=== PATIENT | female | born 1970 | race Caucasian/White ===

== ENCOUNTER 2019-02-27 10:37 | Outpatient (CLI) | payer SELFPAY | END 2019-02-27 10:38 | disposition critical access hospital (66) | LOC: EMS 10:37 | PROVIDERS: ATTEND Surgery | DX: M25.552 Pain in left hip (principal); R42 Dizziness and giddiness; W18.39XA Other fall on same level, initial encounter; Y92.89 Other specified places as the place of occurrence of the external cause | CPT/HCPCS: A0425; A0429 ==

== ENCOUNTER 2019-02-27 10:47 | Observation (INO) | payer SELFPAY ==
[2019-02-27] MEDS ORDERED: HYDROmorphone 1 MG/ML CARPUJECT IVP STA ×5 (12:09→17:43)
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
[2019-02-27 12:55] LABS: BASOPHILS # (AUTO) 0.1 10^3/uL (0.0-0.1); BASOPHILS % (AUTO) 1.2 %; EOSINOPHILS # (AUTO) 0.1 10^3/uL (0.0-0.7); EOSINOPHILS % (AUTO) 1.3 %; HGB - HEMOGLOBIN 13.9 g/dL (12.0-16.0); LYMPHOCYTES # (AUTO) 2.8 10^3/uL (1.5-3.5); LYMPHOCYTES % (AUTO) 26.8 %; MEAN CORPUSCULAR HEMOGLOBIN 30.8 pg (27.0-31.0); MEAN CORPUSCULAR HGB CONC 33.8 g/dL (32.0-36.0); MEAN PLATELET VOLUME 7.1 fL (7.9-10.8); MONOCYTES # (AUTO) 0.5 10^3/uL (0.0-1.0); MONOCYTES % (AUTO) 5.2 %; NEUTROPHILS % (AUTO) 65.5 %; PLT - PLATELET COUNT 238 10^3/uL (130-450); RED BLOOD COUNT 4.53 10^6/uL (4.20-5.40); RED CELL DISTRIBUTION WIDTH 14.3 % (12.0-15.0); WHITE BLOOD COUNT 10.6 x10^3/uL (4.8-10.8)
[2019-02-27] MEDS ORDERED: ONDANSETRON 4 MG/2 ML VIAL IVP STA (12:55)
[2019-02-27 13:10] LABS: ALBUMIN/GLOBULIN RATIO 1.2 (1.0-2.2); BILIRUBIN,TOTAL 0.6 mg/dL (0.2-1.0); CALCIUM 9.2 mg/dL (8.5-10.3); CREATININE 0.5 mg/dL (0.4-1.0); TOTAL PROTEIN 7.4 g/dL (6.7-8.2)
[2019-02-27] MEDS ORDERED: KETAMINE 500 MG/10 ML VIAL IVP STA (13:29)
--- NOTE | 2019-02-27 15:39 | XRAY Report ---
Reason: hip pain Procedure Date: 02/27/2019 Accession Number: [id number] / [id number] Procedure: XR - Femur 2V LT CPT Code: FULL RESULT: EXAM: LEFT FEMUR RADIOGRAPHY. EXAM DATE: 02/27/2019 02:34 PM. CLINICAL HISTORY: Hip pain. COMPARISON: FEMUR 2V LT 02/27/2019 2:21 PM, HIP W/PELVIS 2-3V LT 02/27/2019 2:21 PM. TECHNIQUE: 2 views. FINDINGS: Bones: Normal. No fracture or bone lesion. Joints: The visualized hip and knee joints are normal. No effusions. Soft Tissues: Normal. No soft tissue swelling. IMPRESSION: Normal femur radiography. RADIA
--- NOTE | 2019-02-27 15:41 | XRAY Report ---
Reason: hip pain Procedure Date: 02/27/2019 Accession Number: [id number] / [id number] Procedure: XR - Hip w/Pelvis 2-3V LT CPT Code: FULL RESULT: EXAM: LEFT HIP RADIOGRAPHY EXAM DATE: 02/27/2019 02:34 PM. CLINICAL HISTORY: Hip pain. COMPARISON: HIP W/PELVIS 2-3V LT 02/27/2019 2:21 PM FEMUR 2V LT 02/27/2019 2:21 PM. TECHNIQUE: 2 views. FINDINGS: Bones: Normal. No fractures or bone lesion. Joints: Normal. No dislocation. The hip joint space is preserved. Soft Tissues: Normal. No soft tissue swelling. T-shaped IUD is superimposed in the central pelvis. Degenerative disk and facet changes noted in the lower lumbar spine. IMPRESSION: Normal hip radiography. RADIA
--- NOTE | 2019-02-27 16:48 | CT Report ---
Reason: Persistent hip pain p fall Procedure Date: 02/27/2019 Accession Number: [id number] / [id number] Procedure: CT - LOWER EXTREMITY WO - LT CPT Code: FULL RESULT: EXAM: LEFT HIP CT WITHOUT CONTRAST EXAM DATE: 02/27/2019 04:25 PM. CLINICAL HISTORY: Persistent hip pain after fall. COMPARISON: None. TECHNIQUE: Thin-section axial images were acquired of the hip without contrast. Post-processing: Coronal and sagittal reformats. Other: None. In accordance with CT protocol optimization, one or more of the following dose reduction techniques were utilized for this exam: automated exposure control, adjustment of mA and/or KV based on patient size, or use of iterative reconstructive technique. FINDINGS: Bones: No fracture or bone lesion. Joints: The visualized hip joint space is somewhat narrow primarily posteriorly. No calcified loose bodies. No large effusions. The other visualized joint spaces are normal. Musculature: Normal. No fatty atrophy. Other: Bilateral L4 pars defect with 7.2 mm anterolisthesis and advanced osteoarthritic change and disk annulus calcification at this level. IMPRESSION: 1. No acute fractures. 2. Left hip joint space is narrow. 3. Bilateral L4 pars defects with 7.2 mm of anterolisthesis, advanced osteoarthritic change and disk annulus calcification at this level. RADIA
[2019-02-27] MEDS ORDERED: ACETAMINOPHEN 325 MG TABLET PO PRN (18:10)
[2019-02-27] MEDS: SODIUM CHLORIDE FLUSH 0.9% 10 ML SYRINGE IVP PRN (19:19)
[2019-02-27] MEDS: SODIUM CHLORIDE 0.9% 1,000 ML IV SCH (19:19)
[2019-02-27] MEDS: HYDROmorphone 0.5 MG/0.5 ML SYRINGE IVP PRN ×3 (19:32→23:53)
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
[2019-02-27 20:01] LABS: MUDS CUTOFF CONCENTRATIONS CUTOFF CONC BELOW:
--- NOTE | 2019-02-27 20:17 | CONSULTATION NOTE ---
Referring Provider Name of Referring Provider:: Robin Miles MD Consult Date: 02/27/19 Chief Complaint - Chief Complaint Chief Complaint: Asked to evaluate for left hip pain History of Present Illness - History of Present Illness HPI Comment/Other: Sonali is a 49-year-old female in her usual state of health until today 02/27/2019 when she was visiting from out of town. [place] and said she was "running around" and possibly dehydrated and reportedly passed out landing directly on her left hip. She said she had difficulty walking and pain. She points the lateral aspect of her left hip and posterior laterally in the gluteal region as the location of the majority of her symptoms. She said that she has a bit of thigh pain pointing to the quadriceps anteriorly denies significant groin pain denies other significant traumatic complaints. She denies a history of passing out. She reportedly has type 2 diabetes which is controlled with diet. Patient was seen in the emergency department reportedly had negative x-rays and a negative CT scan and orthopedic consultation was sought. Patient was to be admitted to the hospitalist service for observation and pain control. Of significant note patient is visiting from out of town. She lives in [place]. She is visiting her daughter who is in the [place]. Patient was previously planning to go back home to [place] to get this weekend. She has a Elia moura. History - Past Medical History Cardiovascular: reports: None Respiratory: reports: None Neuro: reports: None Endocrine/Autoimmune: reports: Type 2 diabetes GI: reports: None, Other (Obesity) MENTAL MEASUREMENTS TEACHER: reports: None : reports: None HEENT: reports: None Psych: reports: None Musculoskeletal: reports: None Derm: reports: None MRSA Hx?: No - Past Surgical History /MENTAL MEASUREMENTS TEACHER: reports: section - Family & Social History Living arrangement: At home Living Situation: With spouse/s.o. (See medical record for further details.) - POLST Patient has POLST: No Meds/Allgy - Home Medications Home Medications: Ambulatory Orders Medication Instructions Recorded Confirmed No Known Home Medications 02/27/19 02/27/19 - Allergies Allergies/Adverse Reactions: Allergies Allergy/AdvReac Type Severity Reaction Status Date / Time ibuprofen [From Motrin] Allergy Rash Verified 02/27/19 10:59 Penicillins Allergy Hives Verified 02/27/19 10:59 Exam - Vital Signs Vital Signs: Vital Signs x48h Temp Pulse Pulse Resp BP BP Pulse Ox 02/27/19 19:00 36.6 C 109 H 22 146/75 H 97 02/27/19 18:07 37.3 C 107 H 18 124/72 96 02/27/19 16:34 108 H 16 118/80 96 02/27/19 15:05 103 H 18 157/91 H 97 02/27/19 13:43 109 H 16 195/109 H 97 - Physical Exam Comments/Other: Patient is a morbidly obese 49-year-old female no acute distress. She is awake and alert and cooperative with the exam. Patient is observed to move somewhat comfortably in her bed and denies pain at rest. Patient's left lower extremity shows skin is intact no abrasions or ecchymosis appreciated on her thigh or gluteal region. Patient is able to initiate flexion-extension of ankle knee and hip. She has palpable dorsalis pedis. She is light touch sensation distally. Calf and thigh generally soft and nontender. Patient is able to straight leg raise in the supine position and reports mild lateral sided hip pain with that. She denies any groin pain with that maneuver. She denies groin pain with logrolling or passive hip flexion internal and external rotation though does report some trochanteric and gluteal region pain with that. She has tenderness to palpation laterally over the trochanter and just posterior to that. Knee unremarkable foot and ankle unremarkable for acute findings. There is no deformity of the left lower extremity regarding length alignment rotation. Conclusion/Plan - Diagnosis Diagnosis: Left gluteal/ hip contusion, Possible occult fracture - Plan Plan: Sonali is a 49-year-old female with a left hip contusion possible occult fracture. Patient had x-rays and CT scan. These were read as negative by the radiologist. No obvious fracture is noted though a nondisplaced basicervical fracture of the left femur is possible and explained/discussed with the patient. Initially per discussion with the emergency medicine physician, the patient was to have an MRI. However, unfortunately the patient has a pacemaker and MRI will not be possible. Discussed this with the patient. We talked about her exam history and the studies to date. Her exam (and younger age) is somewhat atypical for a hip fracture. That said, she is significantly painful for this to be a serious consideration. We talked about treatment options both operative and nonoperative and the potential short and long-term problems with and without surgery. We talked about the potential for a nondisplaced hip fracture displacing. The implications of this are discussed. We also highlighted the potential risks/benefits/alternatives associated with surgery. We discussed the typical situation where an MRI is possible and we are able to act on more specific knowledge of the presence or absence of a fracture. It does not appear that this will be possible in her case. After outlining the options and the potential r/b/a with and without surgery patient wishes to proceed with the following plan: Patient wishes to proceed with nonoperative treatment. This will include protected weightbearing with foot flat weightbearing and assistive device and assistance for any transfers or ambulation. The potential for this treatment approach failing and the potential for her having a nondisplaced fracture displaced and the potential need for surgery in the future is discussed. I would recommend formal physical therapy and occupational therapy to help navigate this. I would recommend continued analgesia as appropriate. I would recommend appropriate DVT prophylaxis both mechanical and chemical. I recommend decubitus precautions and incentive spirometer q. one hour when awake. We discussed with the patient that with or without surgery I would not advise her to travel back to [place] in the near future. The rationale for this is reviewed. My suspicion is that she will benefit from a stay in a rehabilitation facility given the significant precautions that must be taken until she has healing of her soft tissues and/or her underlying bone. This was discussed with the hospitalist taking care of her. We will also discuss with the orthopedic team for any further recommendations. We will continue to follow this patient but please do not hesitate to contact orthopedic service for any further information or answer additional questions. - Lab Results Fish Bones: 02/27/19 12:47 02/27/19 12:47
[2019-02-27 20:21] LABS: COCAINE SCREEN URINE NEGATIVE (NEGATIVE)
[2019-02-27 20:22] LABS: AMPHETAMINE SCREEN,URINE POSITIVE (NEGATIVE); BENZODIAZEPINES SCREEN, URINE NEGATIVE (NEGATIVE); METHADONE SCREEN, URINE NEGATIVE (NEGATIVE); METHAMPHETAMINES SCREEN, URINE POSITIVE (NEGATIVE); OPIATE SCREEN, URINE POSITIVE (NEGATIVE); TRICYCLIC ANTIDEPRESSANT,URINE NEGATIVE (NEGATIVE)
[2019-02-27 20:23] LABS: OXYCODONE SCREEN, URINE NEGATIVE (NEGATIVE); PROPOXYPHENE SCREEN, URINE NEGATIVE (NEGATIVE)
[2019-02-27] MEDS: FAMOTIDINE 20 MG TABLET PO SCH (21:29)
[2019-02-27] MEDS: NYSTATIN POWDER 15 GM TOP SCH (21:29)
[2019-02-28] MEDS: SODIUM CHLORIDE FLUSH 0.9% 10 ML SYRINGE IVP SCH ×3 (01:00→16:31)
[2019-02-28] MEDS: TEMAZEPAM 15 MG CAPSULE PO PRN ×2 (01:08→22:02)
[2019-02-28] MEDS: ONDANSETRON ODT 4 MG TABLET TL PRN ×3 (03:06→21:20)
[2019-02-28] MEDS: HYDROmorphone 0.5 MG/0.5 ML SYRINGE IVP PRN ×8 (03:06→18:32)
[2019-02-28] MEDS: SODIUM CHLORIDE 0.9% 1,000 ML IV SCH ×2 (04:58→15:01)
[2019-02-28 06:10] LABS: BASOPHILS # (AUTO) 0.1 10^3/uL (0.0-0.1); BASOPHILS % (AUTO) 1.3 %; EOSINOPHILS # (AUTO) 0.3 10^3/uL (0.0-0.7); EOSINOPHILS % (AUTO) 3.1 %; HGB - HEMOGLOBIN 12.4 g/dL (12.0-16.0); LYMPHOCYTES # (AUTO) 2.6 10^3/uL (1.5-3.5); LYMPHOCYTES % (AUTO) 29.6 %; MEAN CORPUSCULAR HEMOGLOBIN 32.1 pg (27.0-31.0); MEAN CORPUSCULAR HGB CONC 34.6 g/dL (32.0-36.0); MEAN CORPUSCULAR VOLUME 92.7 fL (81.0-99.0); MEAN PLATELET VOLUME 6.9 fL (7.9-10.8); MONOCYTES # (AUTO) 0.6 10^3/uL (0.0-1.0); MONOCYTES % (AUTO) 6.7 %; NEUTROPHILS # (AUTO) 5.2 10^3/uL (1.5-6.6); NEUTROPHILS % (AUTO) 59.3 %; PLT - PLATELET COUNT 195 10^3/uL (130-450); RED BLOOD COUNT 3.88 10^6/uL (4.20-5.40); RED CELL DISTRIBUTION WIDTH 14.2 % (12.0-15.0); WHITE BLOOD COUNT 8.7 x10^3/uL (4.8-10.8)
[2019-02-28 06:17] LABS: CALCIUM 8.8 mg/dL (8.5-10.3); CREATININE 0.6 mg/dL (0.4-1.0)
[2019-02-28 07:48] LABS: HB2 TOTAL 12.8 g/dL; HEMOGLOBIN A1C 1.02 g/dL; HEMOGLOBIN A1C % 9.4 % (4.6-6.2)
[2019-02-28] MEDS: FAMOTIDINE 20 MG TABLET PO SCH ×2 (08:03→21:11)
[2019-02-28] MEDS: NYSTATIN POWDER 15 GM TOP SCH ×2 (08:11→21:11)
[2019-02-28] MEDS: POLYETHYLENE GLYCOL 3350 17 GM PACKET PO SCH (08:11)
--- NOTE | 2019-02-28 15:16 | PROVIDER PROGRESS NOTE ---
Subjective - Prog Note Date Prog Note Date: 02/28/19 Prog Note Time: 15:12 - Subjective Pt reports feeling: Improved Subjective: Komal complains of ongoing left hip pain, that is a slight bit better since arriving in the ED. She explained where her pain was, and became immediately tearful with her own palpation. She was informed of her drug screen results, and exclaimed, "I am blocking my sister from my phone, and kicking her out"! She states that her sister must have slipped some meth into her diet coke yesterday. She also questioned if you can get meth in your system by being in the same room with a meth smoker. She states that she has not been able to bear weight on her left leg at all today, and moving has been very painful despite the IV narcotics. 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 Current Medications - Current Medications Current Medications: Active Medications: Acetaminophen (Tylenol) 650 mg PO Q4HR PRN Aspirin (St Daron Aspirin) 81 mg PO DAILY RENETTA Atorvastatin Calcium (Lipitor) 40 mg PO QPM RENETTA Famotidine (Pepcid) 20 mg PO BID RENETTA Hydromorphone HCl (Dilaudid Inj Syringe) 0.5 mg IVP Q2H PRN Insulin Aspart (Novolog) 1 - 5 unit SUBQ 0800,1200,1700,2100 RENETTA; Protocol Insulin Glargine (Lantus Solostar) 10 unit SUBQ QPM RENETTA Lisinopril (Zestril) 5 mg PO DAILY RENETTA Metoprolol Succinate (Toprol Xl) 25 mg PO BIDWM RENETTA Nystatin (Nystop) 1 applic TOP BID RENETTA Ondansetron HCl (Zofran Odt) 4 mg TL Q6HR PRN Polyethylene Glycol (Miralax) 17 gm PO DAILY RENETTA Spironolactone (Aldactone) 25 mg PO DAILY RENETTA Temazepam (Restoril) 15 mg PO QPM PRN HOME meds: No Known Home Medications 02/27/19 Objective - Vital Signs/Intake & Output Reviewed Vital Signs: Yes Vital Signs: Vital Signs x48h Temp Pulse Pulse Pulse Pulse Resp BP 02/28/19 14:46 02/28/19 13:00 36.8 C 96 18 147/94 H 02/28/19 10:00 103 H 101 H 02/28/19 08:31 37.2 C 104 H 19 02/28/19 07:58 37.2 C 104 H 19 152/91 H BP BP Pulse Ox 02/28/19 14:46 95 02/28/19 13:00 94 02/28/19 10:00 143/83 H 139/64 H 02/28/19 08:31 97 02/28/19 07:58 95 Intake & Output: Intake & Output 02/25/19 02/26/19 02/27/19 02/28/19 23:59 23:59 23:59 23:59 Intake Total 480 3125 Output Total 300 Balance 180 3125 - Objective General Appearance: positive: Alert, Moderate distress, Anxious Eyes Bilateral: positive: PERRL Eyes: OU Conjunctivae pale, OU Lid inflammation ENT: positive: Pharynx nml, Dry mucous membranes Neck: positive: Thyroid nml, No JVD, Trachea midline Respiratory: positive: Chest non-tender, No respiratory distress, Breath sounds nml Cardiovascular: positive: No gallop, Tachycardia, Systolic murmur, Decreased pulse(s) Peripheral Pulses: 1+ Radial (R), 1+ Radial (L) Abdomen: positive: Non-tender, Nml bowel sounds, Hepatomegaly, Other (obese, soft) Back: positive: Nml inspection Skin: positive: Color nml, No rash, Warm, Dry, Embolic lesions, Other (lesions surrounding mouth, several scattered lesions) Extremities: positive: Non-tender, Full ROM, Pedal edema (chronic BLE), Joint swelling (left hip greater than right) Neurologic/Psychiatric: positive: Oriented x3, CN's nml (2-12), Motor nml, Sensation nml, Weakness, Depressed mood/affect (tearful, flight of ideas) Reflexes: Bicep (R): 2+, Bicep (L): 2+ - Lab Results Fish Bones: 02/28/19 06:00 02/28/19 06:00 Other Labs: Lab Results x24hrs 02/28/19 02/28/19 02/28/19 Range/Units 06:00 06:00 06:00 WBC (4.8-10.8) x10^3/uL RBC (4.20-5.40) 10^6/uL Hgb (12.0-16.0) g/dL Hct (37.0-47.0) % MCV (81.0-99.0) fL MCH (27.0-31.0) pg MCHC (32.0-36.0) g/dL RDW (12.0-15.0) % Plt Count (130-450) 10^3/uL MPV (7.9-10.8) fL Neut # (Auto) (1.5-6.6) 10^3/uL Lymph # (Auto) (1.5-3.5) 10^3/uL [place] # (Auto) (0.0-1.0) 10^3/uL Eos # (Auto) (0.0-0.7) 10^3/uL Baso # (Auto) (0.0-0.1) 10^3/uL Absolute Nucleated RBC x10^3/uL Nucleated RBC % /100WBC Sodium 135 (135-145) mmol/L Potassium 3.9 (3.5-5.0) mmol/L Chloride 99 L (101-111) mmol/L Carbon Dioxide 25 (21-32) mmol/L Anion Gap 11.0 (6-13) BUN 14 (6-20) mg/dL Creatinine 0.6 (0.4-1.0) mg/dL Estimated GFR (MDRD) 105 (>89) Glucose 253 H (70-100) mg/dL Glycated Hemoglobin 9.4 H (4.6-6.2) % Estim Average Glucose 223 H (70-100) Calcium 8.8 (8.5-10.3) mg/dL Troponin I < 0.04 (<0.49) ng/mL Urine Opiates Screen (NEGATIVE) Ur Oxycodone Screen (NEGATIVE) Urine Methadone Screen (NEGATIVE) Ur Propoxyphene Screen (NEGATIVE) Ur Barbiturates Screen (NEGATIVE) Ur Tricyclics Screen (NEGATIVE) Ur Phencyclidine Scrn (NEGATIVE) Ur Amphetamine Screen (NEGATIVE) U Methamphetamines Scrn (NEGATIVE) U Benzodiazepines Scrn (NEGATIVE) Urine Cocaine Screen (NEGATIVE) U Cannabinoids Screen (NEGATIVE) 02/28/19 02/28/19 02/27/19 Range/Units 06:00 00:21 19:56 WBC 8.7 (4.8-10.8) x10^3/uL RBC 3.88 L (4.20-5.40) 10^6/uL Hgb 12.4 (12.0-16.0) g/dL Hct 35.9 L (37.0-47.0) % MCV 92.7 (81.0-99.0) fL MCH 32.1 H (27.0-31.0) pg MCHC 34.6 (32.0-36.0) g/dL RDW 14.2 (12.0-15.0) % Plt Count 195 (130-450) 10^3/uL MPV 6.9 L (7.9-10.8) fL Neut # (Auto) 5.2 (1.5-6.6) 10^3/uL Lymph # (Auto) 2.6 (1.5-3.5) 10^3/uL [place] # (Auto) 0.6 (0.0-1.0) 10^3/uL Eos # (Auto) 0.3 (0.0-0.7) 10^3/uL Baso # (Auto) 0.1 (0.0-0.1) 10^3/uL Absolute Nucleated RBC 0.01 x10^3/uL Nucleated RBC % 0.1 /100WBC Sodium (135-145) mmol/L Potassium (3.5-5.0) mmol/L Chloride (101-111) mmol/L Carbon Dioxide (21-32) mmol/L Anion Gap (6-13) BUN (6-20) mg/dL Creatinine (0.4-1.0) mg/dL Estimated GFR (MDRD) (>89) Glucose (70-100) mg/dL Glycated Hemoglobin (4.6-6.2) % Estim Average Glucose (70-100) Calcium (8.5-10.3) mg/dL Troponin I < 0.04 (<0.49) ng/mL Urine Opiates Screen POSITIVE H (NEGATIVE) Ur Oxycodone Screen NEGATIVE (NEGATIVE) Urine Methadone Screen NEGATIVE (NEGATIVE) Ur Propoxyphene Screen NEGATIVE (NEGATIVE) Ur Barbiturates Screen NEGATIVE (NEGATIVE) Ur Tricyclics Screen NEGATIVE (NEGATIVE) Ur Phencyclidine Scrn NEGATIVE (NEGATIVE) Ur Amphetamine Screen POSITIVE H (NEGATIVE) U Methamphetamines Scrn POSITIVE H (NEGATIVE) U Benzodiazepines Scrn NEGATIVE (NEGATIVE) Urine Cocaine Screen NEGATIVE (NEGATIVE) U Cannabinoids Screen NEGATIVE (NEGATIVE) 02/27/19 Range/Units 18:00 WBC (4.8-10.8) x10^3/uL RBC (4.20-5.40) 10^6/uL Hgb (12.0-16.0) g/dL Hct (37.0-47.0) % MCV (81.0-99.0) fL MCH (27.0-31.0) pg MCHC (32.0-36.0) g/dL RDW (12.0-15.0) % Plt Count (130-450) 10^3/uL MPV (7.9-10.8) fL Neut # (Auto) (1.5-6.6) 10^3/uL Lymph # (Auto) (1.5-3.5) 10^3/uL [place] # (Auto) (0.0-1.0) 10^3/uL Eos # (Auto) (0.0-0.7) 10^3/uL Baso # (Auto) (0.0-0.1) 10^3/uL Absolute Nucleated RBC x10^3/uL Nucleated RBC % /100WBC Sodium (135-145) mmol/L Potassium (3.5-5.0) mmol/L Chloride (101-111) mmol/L Carbon Dioxide (21-32) mmol/L Anion Gap (6-13) BUN (6-20) mg/dL Creatinine (0.4-1.0) mg/dL Estimated GFR (MDRD) (>89) Glucose (70-100) mg/dL Glycated Hemoglobin (4.6-6.2) % Estim Average Glucose (70-100) Calcium (8.5-10.3) mg/dL Troponin I < 0.04 (<0.49) ng/mL Urine Opiates Screen (NEGATIVE) Ur Oxycodone Screen (NEGATIVE) Urine Methadone Screen (NEGATIVE) Ur Propoxyphene Screen (NEGATIVE) Ur Barbiturates Screen (NEGATIVE) Ur Tricyclics Screen (NEGATIVE) Ur Phencyclidine Scrn (NEGATIVE) Ur Amphetamine Screen (NEGATIVE) U Methamphetamines Scrn (NEGATIVE) U Benzodiazepines Scrn (NEGATIVE) Urine Cocaine Screen (NEGATIVE) U Cannabinoids Screen (NEGATIVE) ABX Reporting Has patient been on IV antibiotics over the past 48 hours?: No Assessment/Plan - Problem List (1) Syncope and collapse Impression: - Witnessed event while on the [facility] in which she lost consciousness and fell to her left side injuring her left hip - Most likely culprit today shows methamphetamine use combined with dehydration - an unremarkable echo with no acute changes, negative orthostatic vital signs Plan: Continue to work up with a carotid doppler, telemetry and [facility] orthostatics (2) Uncontrolled diabetes mellitus Impression: - [id number] is 9.4%, with an average blood sugar of 223 - Patient claims this has been diet controlled in the past - Also claims that she recently lost ~75 lbs, may be from meth use - Informed patient that the first line treatment is Metformin since she will not be able to undergo an exercise program in the near future (hip injury) Plan: Start SSI, blood sugar checks, Lantus 10 unit to start tonight (3) Methamphetamine dependence Impression: - [facility] urine drug screen showed + methamphetamine, + amphetamine, and opiates - Denies use, states that her sister "must have added it to her diet coke", also asked if someone nearby is smoking meth, could it show up in this test? - Suspicious about circumstances surrounding her last AR at age 46 years- may have been caused by meth/substance abuse - She admitted to her sister who might be coming in later today - Staff should stay alerted to "drug dealing" activities Plan: Social work consult for community resources (4) Tobacco dependence Impression: - Admits to being a life long smoker, 1 PPD - Nicotine patch at 21 mg daily Plan: Encourage cessation, pulmonary rehab would be helpful (5) Status post myocardial infarction Impression: - Echo from today shows Pseudonormal LV filling pattern consistent with Grade (6) Pacemaker Impression: - Echo confirms a dual lead pacemaker that is in the RA and RV - Not paced on telemetry Plan: continue to monitor on tele, give a generous amount of BB (7) Morbid obesity due to excess calories Impression: - BMI is currently 44.4 - Claims to have lost around 75 lbs in the recent past Plan: Encourage weight loss program, start on spironolactone and Metformin to be continued on discharge (8) Grade II diastolic dysfunction Impression: - Echo from today shows an EF of 50-55%, pseudonormal filling pattern - Not thought to be in acute CHF at this time - Takes no regular meds at home, likely due to her meth use and noncompliance Plan: Start Spironolactone, BB, low dose lisinopril (9) Pulmonary hypertension Impression: - Current echo shows an RVSP at rest of 58 mmHg, severely enlarged RA, and RV hypertrophy (10) Medical non-compliance Impression: - Evidence of poorly controlled diabetes and post-AR therapies - Continues to have issues with substance/tobacco abuse Plan: Suggest follow up, encourage close contact with PCP (11) Hyperlipidemia associated with type 2 diabetes mellitus Impression: - Several risk factors for this, but primarily DM that is uncontrolled, and morbid obesity - Also long standing tobacco dependence, now with remote meth addiction Plan: Start Atorvastatin tonight, lipid panel in the AM
[2019-02-28] MEDS: METOPROLOL SUCCINATE 25 MG TABLET PO SCH (16:31)
[2019-02-28] MEDS: INSULIN ASPART 300 UNIT/3 ML PEN SUBQ SCH ×2 (16:31→21:14)
[2019-02-28] MEDS: LISINOPRIL 5 MG TABLET PO SCH (16:31)
--- NOTE | 2019-02-28 20:37 | Ultrasound Report ---
Reason: syncope and collapse Procedure Date: 02/28/2019 Accession Number: [id number] / [id number] Procedure: US - Carotid Doppler Complete CPT Code: FULL RESULT: EXAM: BILATERAL CAROTID AND VERTEBRAL ARTERY DUPLEX DOPPLER ULTRASOUND. EXAM DATE: 02/28/2019 06:00 PM. CLINICAL HISTORY: Syncope and collapse. COMPARISON: None. TECHNIQUE: Grayscale imaging, color Doppler, and duplex spectral Doppler were used to evaluate the carotid and vertebral arteries bilaterally. Static images were obtained. FINDINGS: No significant atheromatous plaques are noted in the right carotid system. Mild atheromatous plaques are noted in the left carotid bulb and extending into the internal and external carotid artery. No hemodynamically significant stenosis is identified. Normal antegrade flow is present in bilateral vertebral arteries. VELOCITIES (cm/sec): Right CCA mid: PSV 107 cm/sec CCA dist: PSV 75 cm/sec ICA prox: PSV 57 cm/sec, EDV 24 cm/sec ICA mid: PSV 80 cm/sec, EDV 29 cm/sec ICA dist: PSV 93 cm/sec, EDV 40 cm/sec ECA: PSV 123 cm/sec Vert: PSV 95 cm/sec ICA/CCA: 0.86 Left CCA mid: PSV 108 cm/sec CCA dist: PSV 89 cm/sec ICA prox: PSV 75 cm/sec, EDV 27 cm/sec ICA mid: PSV 95 cm/sec, EDV 41 cm/sec ICA dist: PSV 94 cm/sec, EDV 43 cm/sec ECA: PSV 98 cm/sec Vert: PSV 59 cm/sec ICA/CCA: 0.87 ICA diameter stenosis: Right: Normal by velocity and <70% by NASCET criteria. Left: <50% by velocity and <70% by NASCET criteria. IMPRESSION: 1. Mild leftand no significant right carotid artery plaquing. 2. In the right carotid artery there are no elevated carotid artery velocities to suggest hemodynamically significant stenosis. 3. In the left carotid artery there are no elevated carotid artery velocities to suggest hemodynamically significant stenosis. 4. Normal antegrade flow is present in bilateral vertebral arteries. General Recommendations: Stenosis =50% ICA - Follow-up ultrasound 6-12 months Stenosis <50% ICA - High Risk Patient with plaque - Follow-up ultrasound 1-2 years Normal Study but High Risk Patient - Follow-up ultrasound 3-5 years Management recommendations and diagnostic criteria are based on current IAC endorsed standards in Carotid Artery Stenosis: Grayscale and Doppler Ultrasound Diagnosis. Validated velocity measurements with angiographic measurements and velocity criteria are extrapolated from diameter data as defined by the Society of Radiologists in Ultrasound Consensus Conference Radiology 2003; 229;340-346. RADIA
[2019-02-28] MEDS ORDERED: ATORVASTATIN 40 MG TABLET PO SCH (21:00)
[2019-02-28] MEDS ORDERED: INSULIN GLARGINE 300 UNIT/3 ML PEN SUBQ SCH (21:00)
[2019-03-01] MEDS: HYDROmorphone 0.5 MG/0.5 ML SYRINGE IVP PRN ×6 (00:29→12:17)
[2019-03-01] MEDS: SODIUM CHLORIDE FLUSH 0.9% 10 ML SYRINGE IVP SCH ×2 (00:30→07:53)
[2019-03-01] MEDS: SODIUM CHLORIDE FLUSH 0.9% 10 ML SYRINGE IVP PRN ×3 (02:57→12:17)
[2019-03-01] MEDS: ONDANSETRON ODT 4 MG TABLET TL PRN (05:10)
[2019-03-01 06:03] LABS: BASOPHILS # (AUTO) 0.1 10^3/uL (0.0-0.1); BASOPHILS % (AUTO) 0.9 %; CALCIUM 8.9 mg/dL (8.5-10.3); CREATININE 0.4 mg/dL (0.4-1.0); EOSINOPHILS # (AUTO) 0.3 10^3/uL (0.0-0.7); EOSINOPHILS % (AUTO) 3.2 %; HGB - HEMOGLOBIN 12.2 g/dL (12.0-16.0); LYMPHOCYTES # (AUTO) 2.6 10^3/uL (1.5-3.5); LYMPHOCYTES % (AUTO) 33.3 %; MEAN CORPUSCULAR HEMOGLOBIN 31.8 pg (27.0-31.0); MEAN CORPUSCULAR HGB CONC 34.3 g/dL (32.0-36.0); MEAN CORPUSCULAR VOLUME 92.7 fL (81.0-99.0); MEAN PLATELET VOLUME 7.3 fL (7.9-10.8); MONOCYTES # (AUTO) 0.6 10^3/uL (0.0-1.0); MONOCYTES % (AUTO) 7.2 %; NEUTROPHILS # (AUTO) 4.4 10^3/uL (1.5-6.6); NEUTROPHILS % (AUTO) 55.4 %; PLT - PLATELET COUNT 183 10^3/uL (130-450); RED BLOOD COUNT 3.85 10^6/uL (4.20-5.40); RED CELL DISTRIBUTION WIDTH 14.4 % (12.0-15.0); WHITE BLOOD COUNT 7.9 x10^3/uL (4.8-10.8)
[2019-03-01 06:11] LABS: CHOL/HDL RATIO 4.1 (<4.4); CHOLESTEROL 115 mg/dL; GAMMA GLUTAMYL TRANSPEPTIDASE 64 IU/L (8-38); HDL CHOLESTEROL 28 mg/dL; LDL CHOLESTEROL,CALCULATED 44 mg/dL; LDL/HDL RATIO 1.6 (<4.4); VLDL CHOLESTEROL 43 mg/dL
[2019-03-01] MEDS: INSULIN ASPART 300 UNIT/3 ML PEN SUBQ SCH ×2 (07:50→12:45)
[2019-03-01 08:17] LABS: ALBUMIN 3.3 g/dL (3.2-5.5); BILIRUBIN,DIRECT 0.1 mg/dL (0.1-0.5); BILIRUBIN,TOTAL 0.6 mg/dL (0.2-1.0); TOTAL PROTEIN 5.7 g/dL (6.7-8.2)
[2019-03-01] MEDS ORDERED: SPIRONOLACTONE 25 MG TABLET PO SCH (09:00)
[2019-03-01] MEDS ORDERED: ASPIRIN CHEW 81 MG TABLET PO SCH (09:00)
[2019-03-01] MEDS: POLYETHYLENE GLYCOL 3350 17 GM PACKET PO SCH (09:54)
[2019-03-01] MEDS: METOPROLOL SUCCINATE 25 MG TABLET PO SCH (09:54)
[2019-03-01] MEDS: FAMOTIDINE 20 MG TABLET PO SCH (09:54)
[2019-03-01] MEDS: LISINOPRIL 5 MG TABLET PO SCH (09:54)
[2019-03-01 11:56] VITALS: BP 126/72
[2019-03-01] MEDS ORDERED: oxyCODONE 5 MG TABLET PO PRN (12:38)
--- NOTE | 2019-03-01 12:40 | Discharge Plan ---
Discharge Plan Disposition: Home, Self Care Condition: Good Prescriptions: oxyCODONE [Roxicodone] 5 mg PO Q4HR PRN #21 tablet PRN Reason: Pain Aspirin Chewable [St Daron Aspirin] 81 mg PO DAILY #30 tablet Atorvastatin [Lipitor] 40 mg PO QPM #30 tablet Lisinopril [Zestril] 5 mg PO DAILY #30 tablet metFORMIN [Glucophage] 500 mg PO BIDWM #60 tablet Metoprolol Succinate [Toprol Xl] 25 mg PO BIDWM #60 tablet Nystatin [Nystop] 1 applic TOP BID #1 bottle Spironolactone [Aldactone] 25 mg PO DAILY #30 tablet Diet: Regular Activity Restrictions: Wt Bearing as Tolerated Shower Restrictions: No Assistance Devices: Walker (4-wheeled walker) Additional Instructions or Follow Up instructions: You were admitted after passing out and falling on your left hip. You had an echocardiogram which showed a condition called left ventricular enlargement and pulmonary hypertension. You will need a sleep study to rule out the possibility of obstructive sleep apnea, and continue to take a medication called Spironolactone. Your diabetes is considered to uncontrolled with your hemoglobin A1C is 9.4%, with an average blood sugar of 223. Please continue Metformin twice daily and follow up with your PCP. To take good care of your heart and vessels, please continue on a low dose aspirin, a statin medication to help control cholesterol, and a rate control medication for the above described heart condition. Please use your 4-wheeled walker to walk and if you are in pain, rest. Please see a provider in one week. No Smoking: If you smoke, Please STOP! Call for help.
[2019-03-01] MEDS: NYSTATIN POWDER 15 GM TOP SCH (12:46)
--- NOTE | 2019-03-01 15:57 | DISCHARGE SUMMARY ---
Discharge Summary Admit Date: 02/27/19 Discharge Date: 03/01/19 Discharging Provider: MANJULA Horta Primary Care Provider: none Code Status: Attempt Resuscitation Condition at Discharge: Good Discharge Disposition: 01 Home, Self Care - DIAGNOSES Admission Diagnoses: Syncope and collapse (R55) Unspecified injury of unspecified hip, initial encounter (S79.290M) Type 2 diabetes mellitus without complications (E11.9) Other sites of candidiasis (B37.89) Discharge Diagnoses with Status of Each Condition: Syncope and collapse (R55) Ruled out cardiac or stroke related, likely a consequence of hypovolemia and methamphetamines Uncontrolled diabetes mellitus (E11.65) A1C 9%, prescribed Metformin, ASA,KRISTIE, and a statin upon discharge Methamphetamine dependence (F15.20) + on [facility] urine drug screen, patient claimed that her "sister must have added it to her diet coke" Tobacco dependence (F17.200) ongoing, chronic, refused nicotine patches Status post myocardial infarction (I25.2) chronic, evidence of prior IA on echo, no acute changes Pacemaker (Z95.0) chronic, stable, no pacing noted on tele Morbid obesity due to excess calories (E66.01) chronic, stable Grade II diastolic dysfunction (I51.9) chronic, stable, continue on Metoprolol Pulmonary hypertension (I27.20) stable, continue on Spironolactone, get a sleep study test outpatient Medical non-compliance (Z91.19) chronic, stable Hyperlipidemia associated with type 2 diabetes mellitus (E11.69) prescribed a statin for DM Hip injury (S79.596B) stable, imaging confirmed no fractures both a CT and x-ray Anya infection of genital region (B37.49) resolved on discharge - HPI History of Present Illness: HPI per Dr. Boles: Patient seen on 02/27/19 at 1915pm Patient is a 49 y/o female who presented to the ED after a [place]opal [place] on [place] ferry from [place] to [facility]. She says she was rushing around on the ferry just prior. Then she felt nauseous/ sea sick before passing out, landing on her left hip. She denied any chest pain, RADHA, abd pain, vomiting, fever or chills. She had a good breakfast in the morning. She is diabetic but diet controlled only. She reports an incident of cardiac arrest 3 years ago in [place]. She reports having a pacemaker in place. She appears to have severe pain in the left hip and is occasionally tearful. She is in the [place] on vacation visiting family. She is from [place]. - CONSULTS | PROCEDURES Consultations: Dr. Wright- Ortho Procedures: none - HOSPITAL COURSE Hospital Course: The patient had uncontrolled pain, and could not bear weight, which resolved. The [facility] delivered a 4-wheeled walker to her room to use at home. Prescriptions were sent to a [facility]. - ALLERGIES Allergies/Adverse Reactions: Allergies Allergy/AdvReac Type Severity Reaction Status Date / Time ibuprofen [From Motrin] Allergy Rash Verified 02/27/19 10:59 Penicillins Allergy Hives Verified 02/27/19 10:59 - MEDICATIONS Home Medications: Ambulatory Orders Medication Instructions Recorded Confirmed Aspirin Chewable [St Daron 81 mg PO DAILY #30 tablet 03/01/19 Aspirin] Atorvastatin [Lipitor] 40 mg PO QPM #30 tablet 03/01/19 Lisinopril [Zestril] 5 mg PO DAILY #30 tablet 03/01/19 Metoprolol Succinate [Toprol Xl] 25 mg PO BIDWM #60 tablet 03/01/19 Nystatin [Nystop] 1 applic TOP BID #1 bottle 03/01/19 Spironolactone [Aldactone] 25 mg PO DAILY #30 tablet 03/01/19 metFORMIN [Glucophage] 500 mg PO BIDWM #60 tablet 03/01/19 oxyCODONE [Roxicodone] 5 mg PO Q4HR PRN #21 tablet 03/01/19 - PHYSICAL EXAM AT DISCHARGE General Appearance: positive: Alert, Mild distress, Anxious Eyes Bilateral: positive: PERRL ENT: positive: Pharynx nml, No signs of dehydration Neck: positive: Thyroid nml, No JVD, Trachea midline Respiratory: positive: Chest non-tender, No respiratory distress, Breath sounds nml Cardiovascular: positive: Regular rate & rhythm, No gallop, Systolic murmur, Decreased pulse(s) Peripheral Pulses: positive: 1+ Abdomen: positive: Non-tender, Nml bowel sounds, Hepatomegaly, Other (obese, soft) Back: positive: Nml inspection Skin: positive: Color nml, No rash, Warm, Dry Extremities: positive: Non-tender, Full ROM, Pedal edema, Joint swelling Neurologic/Psychiatric: positive: Oriented x3, CN's nml (2-12), Motor nml, Sensation nml, Depressed mood/affect Reflexes: Bicep (R): 3+, Bicep (L): 3+ - LABS Result Diagrams: 03/01/19 05:46 03/01/19 05:46 - FOLLOW UP Follow Up: Disposition: Home, Self Care Condition: Good Prescriptions: oxyCODONE [Roxicodone] 5 mg PO Q4HR PRN #21 tablet PRN Reason: Pain Aspirin Chewable [St Daron Aspirin] 81 mg PO DAILY #30 tablet Atorvastatin [Lipitor] 40 mg PO QPM #30 tablet Lisinopril [Zestril] 5 mg PO DAILY #30 tablet metFORMIN [Glucophage] 500 mg PO BIDWM #60 tablet Metoprolol Succinate [Toprol Xl] 25 mg PO BIDWM #60 tablet Nystatin [Nystop] 1 applic TOP BID #1 bottle Spironolactone [Aldactone] 25 mg PO DAILY #30 tablet Diet: Regular Activity Restrictions: Wt Bearing as Tolerated Shower Restrictions: No Assistance Devices: Walker (4-wheeled walker) Additional Instructions or Follow Up instructions: You were admitted after passing out and falling on your left hip. You had an echocardiogram which showed a condition called left ventricular enlargement and pulmonary hypertension. You will need a sleep study to rule out the possibility of obstructive sleep apnea, and continue to take a medication called Spironolactone. Your diabetes is considered to uncontrolled with your hemoglobin A1C is 9.4%, with an average blood sugar of 223. Please continue Metformin twice daily and follow up with your PCP. To take good care of your heart and vessels, please continue on a low dose aspirin, a statin medication to help control cholesterol, and a rate control medication for the above described heart condition. Please use your 4-wheeled walker to walk and if you are in pain, rest. Please see a provider in one week. - TIME SPENT Time Spent in Discharge (Minutes): 60
== END 2019-03-01 13:00 | disposition home or self-care (01) ==
LOC: ED 10:47 → OBS 18:10
PROVIDERS: ADMIT Internal Medicine; ATTEND Nurse Practitioner
DX: R55 Syncope and collapse (principal); S70.02XA Contusion of left hip, initial encounter; W18.30XA Fall on same level, unspecified, initial encounter; Y92.814 Boat as the place of occurrence of the external cause; F15.20 Other stimulant dependence, uncomplicated; E11.65 Type 2 diabetes mellitus with hyperglycemia; E78.5 Hyperlipidemia, unspecified; I51.7 Cardiomegaly; I27.20 Pulmonary hypertension, unspecified; B37.2 Candidiasis of skin and nail; E66.01 Morbid (severe) obesity due to excess calories; F17.210 Nicotine dependence, cigarettes, uncomplicated; I25.2 Old myocardial infarction; Z91.19 Patient's noncompliance with other medical treatment and regimen; Z68.41 Body mass index [BMI] 40.0-44.9, adult; Z95.0 Presence of cardiac pacemaker; Z87.828 Personal history of other (healed) physical injury and trauma
CPT/HCPCS: 36415; 73502; 73552; 73700; 80048; 80053; 80061; 80076; 82977; 83036; 83690; 83880; 84443; 84484; 85025; 93005; 93306; 93880; 96361; 96374; 96375; 96376; 97161; 99284; A9270; G0378; J1170; J1815; Q0162; 80306; 83721